=== PATIENT | male | born 1980 | race Caucasian/White ===

== ENCOUNTER 2025-05-13 21:39 | Emergency (ER) | payer BC, SELFPAY ==
[2025-05-13 21:44] VITALS: BP 128/86
[2025-05-13 22:03] LABS: Urine Character Clear (Clear)
[2025-05-13 22:07] LABS: Hematocrit 48.8 % (39.0-52.0); Hemoglobin 17.5 g/dL (13.0-18.0); Mean Corp Hgb Conc. 35.9 g/dL (33.0-37.0); Mean Corpuscular Volume 84.9 fL (80.0-94.0); Nucleated Red Blood Cells % 0 % (-); Platelet Count 296 10^3/uL (130-400); Red Cell Dist. Width 12.0 % (11.5-14.5)
[2025-05-13 22:14] LABS: Urine Red Blood Cell 0-2 /HPF (0-2); Urine White Cell 0-2 /HPF (0-5)
[2025-05-13 22:33] LABS: ALT (SGPT) 58 U/L (0-50); AST (SGOT) 37 U/L (17-59); Albumin 5.4 g/dl (3.5-5.0); Alkaline Phosphatase 72 U/L (38-126); Blood Urea Nitrogen 19 mg/dl (9-20); Calcium 10.2 mg/dl (8.4-10.2); Carbon Dioxide 28 mmol/L (22-30); Chloride 99 mmol/L (98-107); Glucose 107 mg/dl (70-99); Lipase 114 U/L (23-300); Potassium 4.1 mmol/L (3.5-5.1); Sodium 137 mmol/L (135-145); Total Protein 8.9 g/dl (6.3-8.2); eGFR > 60.00
[2025-05-13 23:08] VITALS: BMI 31.8
[2025-05-13 23:09] VITALS: BP 124/83
[2025-05-13] MEDS: LR 1000 IV (23:17)
--- NOTE | 2025-05-14 00:20 | ED.GENMED ---
History of Present Illness
General
Chief Complaint: Abdominal Pain
Time Seen by Provider: 05/13/25 22:36
History of Present Illness
History of Present Illness:
45-year-old male with history of hyperlipidemia presents to the emergency department for evaluation of nausea vomiting diarrhea that began 3 days ago. Vomiting has stopped as of today and he is able to tolerate some fluids however diarrhea
persists. He had a fever today as well thus prompting his physician to refer him to the ED. Denies any significant abdominal pain. No ill contacts. No recent suspicious food intake
Past History
Past History
ED Past Medical History: Hypercholesterolemia and Other (chronic back pain)
ED Past Surgical History: None, Urological and Other (wisdom teeth )
Social History
Tobacco: Non-smoker
Alcohol: Occasional
Drug: None
Personal:
Living: with family
Employment: Employed
Review of Systems
Review of Systems
Allergies reviewed?: Yes
All Other Systems: ROS reviewed and negative except as documented in HPI and ROS
Phy Exam
Physical Exam
Physical Exam:
GEN: Well appearing, NAD, WDWN
HEENT: Oral mucosa moist, no scleral icterus
Cardiac: Regular rate
Lung: No respiratory distress, no tachypnea
Abdomen: Soft, grossly nontender
MSK: No gross deformity or injuries
Skin: Good color, no pallor or jaundice, no rashes
Neuro: AO x3, moves all extremities freely
Psych: Calm, cooperative
Course
Orders/Labs/Results
Orders:
Orders
05/13/25 21:56
Complete Blood Count/With Diff Urgent
Comprehensive Metabolic Panel Urgent
Lactic Acid Urgent
Lipase Urgent
Urinalysis Reflex To Culture Urgent
Date Specimen was Collected: 05/13/25
Time Specimen was Collected: 21:48
Urine Microscopic Reflex Cult Urgent
05/13/25 22:11
CDIFF [C difficile Antigen & Toxins] Urgent
ANDREINA Source: Feces/Stool
Specimen Description:
Date Specimen was Collected: 05/13/25
Time Specimen was Collected: 22:01
Norovirus by PCR Urgent
ANDREINA Source: Feces/Stool
Specimen Description:
Date Specimen was Collected: 05/13/25
Time Specimen was Collected: 22:01
Stool Culture Urgent
ANDREINA Source: Feces/Stool
Specimen Description:
Date Specimen was Collected: 05/13/25
Time Specimen was Collected: 22:02
05/13/25 23:01
Lactated Ringers [Lr] 1,000 ml IV BOLUS
Abnormal Lab Results
05/13/25
21:56
Absolute Monos (auto) 0.7 H 10^3/uL
(0.1-0.6)
Lymphocytes % 16.1 L %
(20.5-51.1)
Glucose 107 H mg/dl
(70-99)
Total Bilirubin 2.3 H mg/dl
(0.2-1.3)
ALT 58 H U/L
(0-50)
Total Protein 8.9 H g/dl
(6.3-8.2)
Albumin 5.4 H g/dl
(3.5-5.0)
Urine Ketones 1+ A
(Negative)
Urine Albumin (Reflex) 2+ A
(Neg - Trace)
05/13/25 21:56
05/13/25 21:56
Vital Signs
Initial and Last Documented VS:
Initial Vital Signs
Temp Pulse Resp BP Pulse Ox
98.1 F 114 16 128/86 98
05/13/25 21:44 05/13/25 21:44 05/13/25 21:44 05/13/25 21:44 05/13/25 21:44
Last Documented Vital Signs
Temp Pulse Resp BP Pulse Ox
98.5 F 83 18 124/82 97
05/13/25 23:09 05/14/25 00:25 05/14/25 00:25 05/14/25 00:25 05/14/25 00:25
MDM/Problems Addressed
MDM/Problems Addressed:
Likely self-limited viral syndrome versus foodborne bacterial pathogen. Stool testing sent prior to discharge. Given IV fluids, tolerating p.o., discussed supportive care
*Pulse Oximetry
SaO2: 95
Oxygen Mode of Delivery: Room air
Patient hypoxic: no
*Critical Care Note
Total Time (30-74mins, 75-104mins- exclusive of procedures): Not Applicable
ED Attending Note
-
Portions of this chart may have been created with voice recognition software.� Occasional wrong word or��sound alike� substitutions may have occurred due to the inherent limitations of voice recognition software.
Discharge Plan
Departure
Patient Disposition: Home (Routine Discharge)
Date of Disposition: 05/14/25
Time of Disposition: 00:21
Patient with high blood pressure during this ER visit?: No
Discharge Problem:
Gastroenteritis
Instructions: Nausea and Vomiting, Adult (DC)
Prescriptions:
No Action
clomipramine 25 MG capsule
25 mg PO DAILY
hydrocodone-acetaminophen [Vicodin] 1 EACH tablet
1 ea PO PRN PRN (Reason: back pain)
Referrals:
Alireza Velez CRNP [Family Provider]
Interventions
Interventions:
*Risk Screen - Suicide Last Done: 05/13/25 21:44
*General Assessment Last Done: 05/13/25 23:08
*Neglect/Abuse Screening Last Done: 05/13/25 21:47
*ED- Fall Risk Assessment Last Done: 05/13/25 23:08
*ED COVID-19 Vaccine History Last Done: 05/13/25 23:08
*ED Influenza Vaccine History Last Done: 05/13/25 23:08
BI-Zaacje-Skeerulzou Assessment Last Done: 05/13/25 23:08
Discharge Date and Time
Print Language: SWEDISH
[2025-05-14 00:25] VITALS: BP 124/82
== END 2025-05-14 00:31 | disposition home or self-care (01) ==
LOC: EMR 21:39
PROVIDERS: Emergency Medicine; EMERGENCY PHYSICIAN Emergency Medicine; FAMILY PHYSICIAN Nurse Practitioner Acute Care
DX: K52.9 Noninfective gastroenteritis and colitis, unspecified (principal); E78.00 Pure hypercholesterolemia, unspecified; G89.29 Other chronic pain
CPT/HCPCS: 99284; 96360; 80053; 81003; 81015; 83605; 83690; 85025; 87045; 87046; 87324; 87427; 87449; 87798